=== PATIENT | male | born 1955 | race Caucasian/White ===

== ENCOUNTER 2025-10-03 12:36 | Observation (INO) | payer MEDICARE ==
[~2025-10-03] VITALS: Ht 162.6 cm; Wt 57.8 kg
[~2025-10-03 12:36] MED LIST: ALBU90OI INH; Advil200 M1 PO; BREO ELLIPTA 11 EAC1 INH; DESO.05TL TOP; FLUT1DIS5 INH; Flonase 0.05% N16 GM; IBUP600 PO; LOSARTAN-HCTZ1 EACH; MONT10T PO; ZESTORETIC 20-121 EA PO
[2025-10-03 20:15] LABS: BASOPHILS ABSOLUTE AUTO 0.04 K/mm3 (0.00-0.23); BASOPHILS PERCENT AUTO 1 % (0-2); EOSINOPHILS ABSOLUTE AUTO 0.10 K/mm3 (0.00-0.68); EOSINOPHILS PERCENT AUTO 1 % (0-6); Hematocrit 36.8 % (37.0-53.0); Hemoglobin 12.3 g/dL (13.5-17.5); IMMATURE GRAN ABSOLUTE AUTO 0.02 K/mm3 (0.00-0.10); IMMATURE GRAN PERCENT AUTO 0 % (0-1); LYMPHOCYTES ABSOLUTE AUTO 1.06 K/mm3 (0.84-5.20); LYMPHOCYTES PERCENT AUTO 15 % (21-46); MONOCYTES ABSOLUTE AUTO 0.65 K/mm3 (0.16-1.47); MONOCYTES PERCENT AUTO 9 % (4-13); Mean Corpuscular HGB Conc 33.4 g/dL (31.5-36.5); Mean Corpuscular Volume 90 fL (80-100); NEUTROPHILS ABSOLUTE AUTO 5.21 K/mm3 (1.96-9.15); NEUTROPHILS PERCENT AUTO 74 % (41-73); NRBC ABSOLUTE 0.00 K/mm3 (0.00-0.02); NRBC Auto 0.0 /100 WBC (0.0-0.2); Platelet Count 280 K/mm3 (150-400); RDW Coefficient Variation 13.7 % (11.7-14.2); RDW Standard Deviation 44.8 fL (35.1-46.3)
[2025-10-03] MEDS ORDERED: FLU VACC TS2025(65UP)/MF59C/PF 45 MCG/0.5 ML SYRINGE IM SCH (20:20)
[2025-10-03] MEDS ORDERED: Ondansetron HCl 2 MG / ML 2ML Vial IV PRN (20:20)
[2025-10-03] MEDS ORDERED: FentaNYL Citrate 50 MCG/ML 2 ML Injection IV PRN (20:20)
[2025-10-03 20:38] LABS: Prothrombin Time Results 11.7 Sec (9.7-11.5)
[2025-10-03 20:44] LABS: Alanine Aminotransfer (ALT/SGP 23.0 U/L (12-78); Albumin, Blood 3.8 g/dL (3.4-5.0); Albumin/Globulin Ratio 1.1 (0.8-1.8); Anion Gap 10.0 mmol/L (3-11); Aspartate Aminotrans (AST/SGOT 15.0 U/L (12-37); Bilirubin, Total 0.5 mg/dL (0.1-1.0); Blood Urea Nitrogen 18.0 mg/dL (8-24); CO2, Blood 26.0 mmol/L (21-32); Calcium, Blood 9.1 mg/dL (8.5-10.1); Chloride, Blood 108.0 mmol/L (98-108); Creatinine, Blood 0.57 mg/dL (0.60-1.20); Globulin, Blood 3.6 g/dL (2.2-4.0); Glucose, Blood 67.0 mg/dL (70-99); Potassium, Blood 3.7 mmol/L (3.5-5.5); Sodium, Blood 140.0 mmol/L (136-145); Total Protein, Blood 7.4 g/dL (6.4-8.2)
[2025-10-03] MEDS ORDERED: CeFAZolin Sodium 2,000 MG in NS 100 ML IV SCH (21:00)
[2025-10-03 23:08] VITALS: BP 117/70
[2025-10-04] VITALS (11 sets, daily range): BP systolic 101–121; BP diastolic 62–75
[2025-10-04] MEDS ORDERED: Albuterol HFA200 ACT/6.7 GM INH INH PRN (00:05)
[2025-10-04] MEDS ORDERED: Formoterol/Mometasone MDI 5/100 mcg 13 GM INH SCH (00:05)
[2025-10-04] MEDS ORDERED: HYDROcodone 5-APAP 325 TAB PO PRN ×2 (02:10→05:15)
[2025-10-04] MEDS ORDERED: FentaNYL Citrate 50 MCG/ML 2 ML Injection ONE (04:01)
[2025-10-04] MEDS ORDERED: Vancomycin HCl 1000 MG ADDvantage ONE (04:01)
[2025-10-04] MEDS ORDERED: Bupivacaine 0.5% HCl 5 MG/ML 30MLVIAL ONE (04:01)
--- NOTE | 2025-10-04 04:09 | NUR ---
PT LEFT FLOOR WITH SURGERY NURSE AT 0409. TELEMETRY NOTIFIED OF PT LEAVING FLOOR.
--- NOTE | 2025-10-04 04:13 | NUR ---
ARRIVAL TO SURGICAL UNIT ROOM 211 AT 2305. PT ARRIVED VIA WHEELCHAIR AND AMBULATORY TO BED. PT A/O X4, ORIENTED TO ROOM, CALL LIGHT, AND POLICIES/PROCEDURES. PT DENIES IGNITION SOURCES PRESENT ON PERSON. PT REPORTED VOIDING IN THE ER PRIOR TO LEAVING ER. PT REPORTS DISCOMFORT IN SCROTAL AREA BUT DENIES PAIN MEDICATION WHEN OFFERED. PT WILL BE NPO FOR PLANNED SURGERY THIS SHIFT.
[2025-10-04] MEDS ORDERED: CeFAZolin Sodium 1000 mg Vial ONE (04:19)
[2025-10-04 04:26] LABS: BASOPHILS ABSOLUTE AUTO 0.05 K/mm3 (0.00-0.23); BASOPHILS PERCENT AUTO 1 % (0-2); EOSINOPHILS ABSOLUTE AUTO 0.20 K/mm3 (0.00-0.68); EOSINOPHILS PERCENT AUTO 3 % (0-6); Hematocrit 33.7 % (37.0-53.0); Hemoglobin 11.2 g/dL (13.5-17.5); IMMATURE GRAN ABSOLUTE AUTO 0.02 K/mm3 (0.00-0.10); IMMATURE GRAN PERCENT AUTO 0 % (0-1); LYMPHOCYTES ABSOLUTE AUTO 1.25 K/mm3 (0.84-5.20); LYMPHOCYTES PERCENT AUTO 19 % (21-46); MONOCYTES ABSOLUTE AUTO 0.66 K/mm3 (0.16-1.47); MONOCYTES PERCENT AUTO 10 % (4-13); Mean Corpuscular HGB Conc 33.2 g/dL (31.5-36.5); Mean Corpuscular Volume 92 fL (80-100); NEUTROPHILS ABSOLUTE AUTO 4.53 K/mm3 (1.96-9.15); NEUTROPHILS PERCENT AUTO 68 % (41-73); NRBC ABSOLUTE 0.00 K/mm3 (0.00-0.02); NRBC Auto 0.0 /100 WBC (0.0-0.2); Platelet Count 256 K/mm3 (150-400); RDW Coefficient Variation 13.5 % (11.7-14.2); RDW Standard Deviation 46.2 fL (35.1-46.3)
[2025-10-04] MEDS ORDERED: Ondansetron HCl 2 MG / ML 2ML Vial ONE (04:27)
[2025-10-04] MEDS ORDERED: Dexamethasone Sod Phos 10 MG/ML 1ML VIAL ONE (04:27)
[2025-10-04] MEDS ORDERED: ePHEDrine Sulfate 50 MG/ML 1ML Injection ONE (04:49)
[2025-10-04 04:50] LABS: Alanine Aminotransfer (ALT/SGP 20.0 U/L (12-78); Albumin, Blood 3.1 g/dL (3.4-5.0); Albumin/Globulin Ratio 1.0 (0.8-1.8); Anion Gap 8.0 mmol/L (3-11); Aspartate Aminotrans (AST/SGOT 15.0 U/L (12-37); Bilirubin, Total 0.7 mg/dL (0.1-1.0); Blood Urea Nitrogen 19.0 mg/dL (8-24); CO2, Blood 26.0 mmol/L (21-32); Calcium, Blood 8.4 mg/dL (8.5-10.1); Chloride, Blood 110.0 mmol/L (98-108); Creatinine, Blood 0.54 mg/dL (0.60-1.20); Globulin, Blood 3.0 g/dL (2.2-4.0); Glucose, Blood 89.0 mg/dL (70-99); Potassium, Blood 3.7 mmol/L (3.5-5.5); Sodium, Blood 140.0 mmol/L (136-145); Total Protein, Blood 6.1 g/dL (6.4-8.2)
[2025-10-04] MEDS ORDERED: FentaNYL Citrate 50 MCG/ML 2 ML Injection IV PRN ×2 (05:20→05:35)
[2025-10-04] MEDS ORDERED: HYDROmorphone HCl/Pf 1MG SYR IV PRN (05:25)
[2025-10-04] MEDS ORDERED: Albuterol 2.5 MG/3 ML VIAL INH PRN (05:35)
[2025-10-04] MEDS ORDERED: Ondansetron HCl 2 MG / ML 2ML Vial IV PRN (05:35)
--- NOTE | 2025-10-04 05:55 | NUR ---
RECEIVED FROM OR RECOVERY PER CARLOS.PT ALERT AND ORIENTED.AMBULATED TO BED,TELE REPLACED,PT WEARING [place] TIGHTS WITH NO BLEEDING NOTED,PACU REPORTED PT HAD PACKING PLACED WITH I/D.PT APPEARS IN NO DISTRESS.SNACKS WILL BE GIVEN PER HIS REQUEST.
[2025-10-04] MEDS ORDERED: Losartan/HCTZ 50-12.5 TAB PO SCH (09:00)
[2025-10-04] MEDS ORDERED: Acetaminophen325 M1 PO (12:09)
[2025-10-04] MEDS ORDERED: CEPH500 PO (12:10)
[2025-10-04] MEDS ORDERED: VISBIOME 112.51 EACH PO (12:10)
--- NOTE | 2025-10-04 16:39 | NUR ---
SHIFT / DISCHARGE SUMMARY: PATIENT DISCHARGED THIS DAY IN [facility]. MR. GUERRA WAS EDUCATED BY THIS NURSE HOW TO CHANGE DRESSING'S ON SCROTUM IF THEY BECOME SATURATED. PLAN TO FOLLOW UP WITH DR. ARGUELLO TOMORROW OUT-PATIENT 10/05/25. PATIENT WAS GIVEN HARD SCRIPT. BELONGINGS PROVIDED BACK TO PATIENT. DRESSINGS C/D/I. PATIENT WHEELED OUT IN W/C.
== END 2025-10-04 15:22 | disposition home or self-care (01) ==
LOC: ER 12:36 → ERHOLD 12:37 → SURS 12:37
PROVIDERS: Physician Assistant; ADMIT Internal Medicine
PROC: 0V950ZZ Drainage of Scrotum, Open Approach (ICD-10-PCS; principal; 2025-10-04)
DX: N50.1 Vascular disorders of male genital organs (principal); I10 Essential (primary) hypertension; J44.9 Chronic obstructive pulmonary disease, unspecified; Z87.891 Personal history of nicotine dependence
CPT/HCPCS: 36415; 80053; 82947; 83880; 85025; 85610; 87070; 87075; 87077; 87186; 87205; 96365; 96366; 99284-25; A9270; G0378; J0690; J1100; J2405; J2704; J3010; J3373